=== PATIENT | male | born 1945 | race African-American/Black ===

== ENCOUNTER 2016-06-22 15:50 | Emergency (ER) | payer OTHER, MEDICARE ==
[2016-06-22 16:14] VITALS: BP 167/77
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
[2016-06-22] MEDS ORDERED: HYDR-971 PO (17:40)
[2016-06-22] MEDS ORDERED: ORPH100T PO (17:40)
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
== END 2016-06-22 17:48 | disposition home or self-care (01) ==
LOC: ER 15:50
DX: S70.02XA Contusion of left hip, initial encounter (principal); S80.01XA Contusion of right knee, initial encounter; S40.012A Contusion of left shoulder, initial encounter; V43.52XA Car driver injured in collision with other type car in traffic accident, initial encounter; Y92.413 State road as the place of occurrence of the external cause; Y93.89 Activity, other specified; Y99.8 Other external cause status
CPT/HCPCS: 73030; 73502; 73562; 99284